=== PATIENT | female | born 1965 | race Caucasian/White ===

== ENCOUNTER 2024-10-06 10:49 | Emergency (ER) | payer SELFPAY ==
[2024-10-06 11:09] VITALS: BP 130/84
--- NOTE | 2024-10-06 12:25 | ED.GENMED ---
History of Present Illness
General
Chief Complaint: Fall
Source: patient
Exam Limitations: none
Time Seen by Provider: 10/06/24 12:11
Nursing documentation reviewed up to this point in time: agreed with
History of Present Illness
History of Present Illness:
Patient is a 58-year-old female who was at work today and fell. Patient reports was walking into work inside the building and she fell. She reports that 4 was sticky and she lost her footing and fell. She reports she landed mostly on her left
side but because her left foot got stuck she could not brace herself. She feels sore to her left leg left lateral neck. She did hit her head on the way getting up. She denies loss of consciousness. She works at the [employer] and was assisted
up by officers. She does have a headache. She is not on blood thinners. She does have issues with sciatica presently and is on a Medrol Dosepak and is followed by [facility] for that.
She denies any nausea vomiting. She reports she mainly feels sore all over.
Review of Systems
Review of Systems
Allergies reviewed?: Yes
All Other Systems: ROS reviewed and negative except as documented in HPI and ROS
Constitutional: Reports no symptoms; Denies fever, fatigue or chills
Respiratory: Reports no symptoms
Cardiac: Reports no symptoms
ABD/GI: Reports no symptoms
: Reports no symptoms
Musculoskeletal: Reports other (' Sore all over' left foot sore left lateral leg left arm sore)
Neurological: Reports headache; Denies dizzy or numbness
Endocrine: Reports no symptoms
Psychiatric: Reports no symptoms
Phy Exam
General Physical Exam
General Presentation: no apparent distress
General age: appears stated age
General Skin: warm and dry
General Habitus: normal
General Hydration: appears well hydrated
Eye Exam
Eye Exam: PERRL and EOMI
Eye Exam General: PERRL: bilateral and EOM intact: bilateral
Pupil Exam: Bilateral: round and reactive
Neurological Exam
Neurological Exam: alert and oriented x3
Musculoskeletal Exam
Musculoskeletal Exam: full ROM and other (lle with strong pulses mild nonspecific tenderness to the left foot no ecchymosis or swelling to foot; mild left lateral proximal ecchymosis to thigh no bony tenderness mild superficial tenderness to left
upper arm however forage motion mild lateral left cervical neck tenderness; no obvious head inj)
Skin Exam
Skin Exam: normal color and warm/dry
Psychiatric Exam
Psychiatric Exam: normal mood/affect
Course
Orders/Labs/Results
Orders:
Orders
10/06/24 12:24
Foot, Left 3 View [CR Foot - Left Min 3 Views] Urgent
Comment:
Reason For Exam: trauma
10/06/24 12:25
CT Cervical Spine W/o Iv Contr Urgent
Comment:
Reason For Exam: trauma
CT Head W/o Iv Contrast Urgent
Comment:
Reason For Exam: trauma
10/06/24 14:20
Acetaminophen [Tylenol] 1,000 mg PO NOW STA
Vital Signs
Initial and Last Documented VS:
Initial Vital Signs
Temp Pulse Resp BP Pulse Ox
98.7 F 78 17 130/84 97
10/06/24 11:09 10/06/24 11:09 10/06/24 11:09 10/06/24 11:09 10/06/24 11:09
Last Documented Vital Signs
Temp Pulse Resp BP Pulse Ox
98.7 F 78 17 130/84 97
10/06/24 11:09 10/06/24 11:09 10/06/24 11:09 10/06/24 11:09 10/06/24 11:09
MDM/Problems Addressed
Differential Diagnosis Includes:
Not limited to less likely intracranial hemorrhage, contusion, fracture, cervical strain less likely cervical fracture
MDM/Problems Addressed:
Patient in no acute distress nontoxic symptoms are consistent with contusion/head injury/cervical strain. No acute findings on foot x-ray. Will DC home with outpatient follow-up.
*Critical Care Note
Total Time (30-74mins, 75-104mins- exclusive of procedures): Not Applicable
ED Attending Note
-
Portions of this chart may have been created with voice recognition software.� Occasional wrong word or��sound alike� substitutions may have occurred due to the inherent limitations of voice recognition software.
Discharge Plan
Departure
Patient Disposition: Home (Routine Discharge)
Date of Disposition: 10/06/24
Time of Disposition: 14:19
Patient with high blood pressure during this ER visit?: Yes
Condition: Fair
Covid-19: Not Applicable
Discharge Problem:
Contusion, Cervical strain, acute, Head injury
Instructions: Head injury in adults, Contusion (DC), Cervical Sprain ED, BLOOD PRESSURE
Referrals:
Amanda Gonsales MD [Family Provider] -
Stand Alone Forms: Return to Work
Activity Restrictions/Additional Instructions:
As discussed ice affected areas for the next 24 hours 20 minutes at a time several times a day followed by warm moist heat. You may continue your previously prescribed steroids. Take Tylenol for discomfort.
Follow-up with your family doctor/work health in the next 1 days return if any worsening of symptoms.
Interventions
Interventions:
*Risk Screen - Suicide Last Done: 10/06/24 11:13
*General Assessment Last Done: 10/06/24 11:13
*Neglect/Abuse Screening Last Done: 10/06/24 11:13
*ED COVID-19 Vaccine History Last Done: 10/06/24 11:13
ED-Musculoskeletal Assessment Last Done: 10/06/24 12:22
ED- Neurological Assessment Last Done: 10/06/24 12:22
ED-Skin Assessment Last Done: 10/06/24 12:22
Discharge Date and Time
Print Language: GEORGIAN
[2024-10-06] MEDS: TYLENOL 1000 MG PO (14:27)
== END 2024-10-06 14:51 | disposition home or self-care (01) ==
LOC: EMR 10:49
PROVIDERS: EMERGENCY PHYSICIAN Emergency Medicine; FAMILY PHYSICIAN Internal Medicine
DX: S09.90XA Unspecified injury of head, initial encounter (principal); S16.1XXA Strain of muscle, fascia and tendon at neck level, initial encounter; W01.0XXA Fall on same level from slipping, tripping and stumbling without subsequent striking against object, initial encounter; Y93.01 Activity, walking, marching and hiking
CPT/HCPCS: 99284; 70450; 72125; 73630